=== PATIENT | male | born 1970 | race Caucasian/White ===

== ENCOUNTER 2018-06-07 00:32 | Emergency (ER) | payer MEDICAID ==
[~2018-06-07] VITALS: Ht 172.7 cm; Wt 229.1 kg
[2018-06-07 00:36] VITALS: Ht 172.7 cm; Wt 229.1 kg
[2018-06-07] MEDS ORDERED: NUCYNTA ER100 MG PO (00:36)
[2018-06-07] MEDS ORDERED: ZESTRIL20 MG PO (00:37)
[2018-06-07 01:07] LABS: BASOPHILS 0.1 % (0-2); EOSINOPHILS 1.9 % (0-7); HEMATOCRIT 41.1 % (42.0-54.0); HEMOGLOBIN 14.2 g/dL (13.5-17.5); IMMATURE GRANULOCYTES 0.1 % (0-5); LYMPHOCYTES 29.1 % (15-50); MCH 30.6 pg (26.0-34.0); MCHC 34.5 g/dL (31.0-37.0); MCV 88.6 fL (80.0-100.0); MEAN PLATELET VOLUME 9.4 fL (7.4-10.4); MONOCYTES 9.8 % (2-11); PLATELET COUNT 227 10x3/uL (130-400); RBC 4.64 10x6/uL (4.20-6.10); RDW 12.6 % (11.5-14.5); WBC 8.8 10x3/uL (4.8-10.8)
[2018-06-07 01:09] LABS: ALBUMIN 3.2 g/dL (3.4-5.0); ALKALINE PHOSPHATASE 54 U/L (46-116); ALT (SGPT) 24 U/L (10-68); BILIRUBIN - TOTAL 0.47 mg/dL (0.2-1.3); CALC OSMOLALITY 277 mosm/kg (275-300); CALCIUM 8.5 mg/dL (8.5-10.1); CARBON DIOXIDE 27.2 mmol/L (21.0-32.0); CHLORIDE - SERUM 103 mmol/L (98-107); GLUCOSE 125 mg/dL (74-106); POTASSIUM - SERUM 3.9 mmol/L (3.5-5.1); SODIUM 138 mmol/L (136-145); UREA NITROGEN 16 mg/dL (7-18); eGFR NON AFRICAN AMERICAN 85 mL/min (90-120)
[2018-06-07 01:11] LABS: APTT 29.2 SECONDS (22.8-39.4); INR 1.04 (0.85-1.17); PROTIME 13.1 SECONDS (11.6-15.0)
[2018-06-07 01:21] LABS: CKMB 0.9 U/L (0.0-3.6); CREATINE KINASE 145 UL (21-232); TROPONIN-I < 0.017 ng/mL (0.000-0.060)
[2018-06-07 03:37] LABS: AMYLASE - SERUM 47 U/L (25-115); LIPASE 203 U/L (73-393)
[2018-06-07 06:39] LABS: CKMB 0.9 U/L (0.0-3.6); CREATINE KINASE 126 UL (21-232); TROPONIN-I < 0.017 ng/mL (0.000-0.060)
[2018-06-07] MEDS ORDERED: CARAFATE1 G PO (07:10)
[2018-06-07] MEDS ORDERED: PROTONIX40 MG PO (07:10)
[2018-06-07 07:38] VITALS: BP 105/64
== END 2018-06-07 08:51 | disposition home or self-care (01) ==
LOC: D.ER 00:32
PROVIDERS: Family Medicine
DX: R07.9 Chest pain, unspecified (principal); K21.9 Gastro-esophageal reflux disease without esophagitis; R06.02 Shortness of breath; I10 Essential (primary) hypertension

== ENCOUNTER → 2018-08-12 10:59 | Outpatient (CLI) | payer OTHER ==
[2018-06-07 00:36] VITALS: BMI 76.8
[~2018-08-12 10:59] MED LIST: CARAFATE1 G PO; NUCYNTA ER100 MG PO; PROTONIX40 MG PO; ZESTRIL20 MG PO
== END | disposition home or self-care (01) ==
LOC: D.RAD 10:30
PROVIDERS: ATTEND Pediatrics
DX: Z02.71 Encounter for disability determination (principal)

== ENCOUNTER → 2019-02-03 13:51 | Outpatient (CLI) | payer MEDICAID ==
[2018-06-07 00:36] VITALS: BMI 76.8
== END | disposition home or self-care (01) ==
LOC: D.MRI 02-01 13:00
PROVIDERS: ATTEND Orthopaedic Surgery
DX: M76.72 Peroneal tendinitis, left leg (principal)

== ENCOUNTER → 2019-05-16 08:08 | Outpatient (CLI) | payer MEDICAID ==
[2018-06-07 00:36] VITALS: BMI 76.8
== END | disposition home or self-care (01) ==
LOC: D.HCCECHO 08:08
PROVIDERS: ATTEND Internal Medicine Cardiovascular Disease
DX: Z01.818 Encounter for other preprocedural examination (principal)

== ENCOUNTER → 2020-03-13 10:14 | Outpatient (CLI) | payer OTHER ==
[2018-06-07 00:36] VITALS: BMI 76.8
== END | disposition home or self-care (01) ==
LOC: D.MRI 10:14
PROVIDERS: ATTEND Orthopaedic Surgery
DX: M25.562 Pain in left knee (principal)